=== PATIENT | male | born 1995 | race Caucasian/White ===

== ENCOUNTER 2019-09-09 09:27 | Emergency (ER) | payer OTHER, SELFPAY ==
[2019-09-09 09:33] VITALS: BP 140/77; PULSE 115; TEMP 37; O2SAT 98
--- NOTE | 2019-09-09 09:45 | DI.RAD_ITS ---
EXAM: XR PORTABLE CHEST AP CLINICAL HISTORY: syncope. TECHNIQUE: 2D digital imaging was performed. COMPARISON: No exams were available for comparison FINDINGS: LUNGS: Clear. No pleural abnormality seen. HEART: Normal. MEDIASTINUM: Normal. OTHER FINDINGS: None. IMPRESSION: No acute pulmonary findings. DATA REPOSITORY: RADIATION DOSE DELIVERED:
--- NOTE | 2019-09-09 09:47 | W.ED.GENAD ---
Discharge Plan Disposition Patient Disposition: HOME Condition: Improving Discharge Details Chief Complaint: Dizzy/Sync Clinical Impression: Urticaria Primary Care Provider: Janet,Local ED Provider: Chidi Winslow Home Meds and New Rx's Prescriptions: New prednisone 20 mg tablet 60 mg PO DAILY 5 Days Qty: 15 RF: 0 famotidine 20 mg tablet 20 mg PO DAILY Qty: 14 RF: 0 Continued epinephrine [EpiPen] 0.3 mg/0.3 mL Auto-Injector 0.3 mg IM Q5-15M PRNRF: 0 Zyrtec 10 mg Capsule 10 mg PO DAILY RF: 0 Discharge Instructions Instructions: Urticaria (ED) Additional Instructions: May continue Zyrtec once daily as you have been. Please take prednisone as prescribed. Famotidine daily for 2 weeks time. We will arrange an outpatient follow-up for you for recheck and to establish a local primary care. Return for difficulty swallowing, difficulty breathing, worsening rash, or any other acute concerns. You may also take Benadryl 25 mg at bedtime. Medical Decision Making 23-year-old male presents from home with day 2 of diffuse urticarial rash. He has not had difficulty swallowing, no change to voice, no change to breathing. He has a history of same in the past. He carries an EpiPen but has not deployed it. The rash is minimally improved with Zyrtec. He is well-appearing and stable on exam. Consistent with hives. He did report an episode of syncope. Therefore given liter of fluid, screening EKG obtained and patient referred for laboratory analysis. He is given parenteral steroid, antihistamines and observed. Screening chest x-ray without evidence of cardiomegaly and no other acute findings. Laboratories show likely stress demargination and elevated white blood cell count of 19, hematocrit 46, platelets 201. Patient dehydrated with urine ketones present, no evidence of infection. Chemistries and negative troponin. Sodium noted at 135, magnesium 1.6, total bili 1.3 with normal LFTs. TSH was normal. I will place him on a burst of steroids, we will arrange outpatient follow-up to establish primary care and for recheck. He will benefit from further antihistamines as well. Discussed with him home care and indications to seek reevaluation. Lab Data Lab results reviewed: Yes I reviewed the patient's lab results. Labs: Laboratory Results - last 24 hr 06/02/20 06/02/20 06/02/20 09:50 09:52 09:52 WBC 19.50 H RBC 5.12 Hgb 16.3 Hct 46.1 MCV 90.0 MCH 31.8 MCHC 35.4 RDW 12.5 Plt Count 201 MPV 11.6 H Immature Gran % 0.2 Neutrophils % 88.3 Lymphocytes % 7.8 Monocytes % 3.5 Eosinophils % 0.1 Basophils % 0.1 Absolute Neutrophils 17.22 H Absolute Lymphocytes 1.52 Absolute Monocytes 0.68 Absolute Eosinophils 0.02 Absolute Basophils 0.02 Sodium 135 L Potassium 3.8 Chloride 100 Carbon Dioxide 26.0 Anion Gap 9.0 BUN 14 Creatinine 1.04 Estimated GFR/1.73 m2 >= 60.00 Glucose 114 H Calcium 8.6 Magnesium 1.6 L Total Bilirubin 1.3 H AST 19 ALT 25 Alkaline Phosphatase 72 Troponin I < 0.05 Total Protein 7.8 Albumin 4.1 TSH 2.33 Urine Color Yellow Urine Clarity Clear Urine pH 6.5 Ur Specific [place] 1.015 Urine Protein Negative Urine Ketones 40 H Urine Blood Trace-intact H Urine Nitrite Negative Urine Bilirubin Negative Urine Urobilinogen 0.2 Ur Leukocyte Esterase Negative Urine RBC 5-10 H Urine WBC 5-10 Ur Epithelial Cells Negative Urine Crystals Negative Urine Bacteria Few Urine Casts Negative Urine Mucus Trace Ur Culture Indicated? Yes Urine Glucose Negative ECG Data Attestation: I personally reviewed and interpreted this ECG (s) as follows: Prior ECG tracings: not available for review Interpretation: Normal sinus rhythm, rate is 84, QRS is narrow, QTc is 440, no ST segment elevation HPI General Mode of arrival: ambulatory. Date/Time Provider Initiated Documentation: 09/09/19 09:33. Limitations to Documentation: no limitations. Information obtained by: patient. History of Present Illness 23 year old M presents to the emergency department with the chief complaint of Diffuse urticarial rash for 2 days, described as moderate, Quality is described as constant, and is localized to the chest, back, abdomen, upper extremity and lower extremity. Patient started experiencing this day(s) and it has been constant. No relieving factors improve symptom(s), No exacerbating factors reported . Patient notes syncope; denies chest pain, diaphoresis, fever/chills, headaches, malaise, nausea/vomiting, seizure and shortness of breath. Patient did receive the following treatments prior to arrival, other (zyrtec) Related Data Home Medications Medication Instructions Recorded Confirmed Zyrtec 10 mg PO DAILY 09/09/19 09/09/19 epinephrine [EpiPen] 0.3 mg IM Q5-15M PRN 09/09/19 09/09/19 famotidine 20 mg PO DAILY #14 tab 09/09/19 prednisone 60 mg PO DAILY 5 Days #15 tab 09/09/19 Previous Rx's Medication Instructions Recorded famotidine 20 mg PO DAILY #14 tab 09/09/19 prednisone 60 mg PO DAILY 5 Days #15 tab 09/09/19 Allergies Allergy/AdvReac Type Severity Reaction Status Date / Time bee pollen Allergy Unverified 09/09/19 09:40 pollen extracts AdvReac Unverified 09/09/19 09:40 General Stated Complaint: Dizzy/Sync SANDY: 3 Review of Systems Narrative: History of the same. Carries an EpiPen but has not used. No known sick contacts. No travel. Denies new soaps, lotions, perfumes, clothing or food exposures. 8 systems reviewed and otherwise negative. [facility] Social History Smoking/Tobacco Use Status: Current every day Tobacco Type: cigarettes Alcohol Intake: never Drug use: Occasionally Substance use type: marijuana Do you feel safe at home: Yes Do you feel safe in your relationship?: Yes Exam Narrative Exam Narrative: GEN: awake, alert, oriented 3. Pleasant, well groomed, interactive. HEAD: Normocephalic, atraumatic ENT: Mucous membranes moist, oropharynx unremarkable without asymmetry or swelling present, External ear exam unremarkable EYES: PERRL, EOMI NECK: Full ROM, no HENRIQUE, no menigismus CHEST/RESP: Nontender, clear to auscultation bilateral, no wheeze/rhonchi/rales CARDIOVASCULAR: Regular, pulse approximately 80, no murmur, rub bryson. 2+ Rad pulse bilateral ABDOMEN: Soft, nontender, no mass. +Bowel sounds EXT: Full ROM, no edema, diffuse urticarial blanching rash with out vesicles present on chest, back, extremities Neuro: Grossly normal neurologic exam, conversant, interactive. Psych: Speech fluent, thoughts congruent, affect normal Course Vital Signs Vital signs: Vital Signs Temperature 37.0 C 09/09/19 09:33 Pulse 115 H 09/09/19 09:33 Blood Pressure 140/77 09/09/19 09:33 Pulse Oximetry 98 09/09/19 09:33 Temperature 37.0 C 09/09/19 09:33 Temperature Source Temporal Artery Scan 09/09/19 09:33 Pulse 115 H 09/09/19 09:33 Respiratory Effort Non-Labored 09/09/19 09:38 Blood Pressure 140/77 09/09/19 09:33 Blood Pressure Position Sitting 09/09/19 09:33 Pulse Oximetry 98 09/09/19 09:33 Oxygen Delivery Method Room Air 09/09/19 09:33 Oxygen Flow Rate 0 09/09/19 09:33 Pain Level 0 09/09/19 09:33
[2019-09-09] MEDS: Normal Saline 1,000 ML 1000 ML IV (09:53)
[2019-09-09] MEDS: Normal Saline Flush 10 ML SYR IVP ×2 (09:53→10:02)
[2019-09-09 09:57] LABS: Bilirubin Negative (Negative); Blood Trace-intact (Negative); Clarity Clear (Clear); Glucose Negative (Negative); Ketones 40 mg/dL (Negative); Leukocyte Esterase Negative (Negative); Nitrite Negative (Negative); Specific Gravity 1.015 (1.005-1.025); Urobilinogen 0.2 EU/dL (Up TO 0.2); pH 6.5 (5-8)
[2019-09-09] MEDS: diphenhydrAMINE 50 MG/ML VIAL 25 MG IVP (09:59)
[2019-09-09] MEDS: methylPREDNISolone SUCC 125 MG VIAL IVP (10:01)
[2019-09-09] MEDS: FAMOTIDINE 20 MG/50 ML BAG 200 MG IVPB (10:01)
[2019-09-09 10:04] LABS: Abs Immature Grans 0.03 k/cumm (0.0-0.09); Absolute Basophil Count 0.02 k/cumm (0.0-0.2); Absolute Eosinophil Count 0.02 k/cumm (0.0-0.7); Absolute Lymphocyte Count 1.52 k/cumm (1.2-3.4); Absolute Monocyte Count 0.68 k/cumm (0.11-0.7); Absolute Neutrophil Count 17.22 k/cumm (1.2-6.7); Basophils % 0.1; Eosinophils % 0.1; HCT 46.1 % (40.0-50.0); HGB 16.3 g/dL (13.5-17.5); Immature Grans % 0.2 %; Lymphocytes % 7.8; Mean Corp. HGB Concentration 35.4 g/dL (32.0-36.0); Mean Corpuscular Hemoglobin 31.8 pg (27.0-33.0); Mean Platelet Volume 11.6 fL (8.0-11.0); Monocytes % 3.5; Neutrophils % 88.3; Platelet Count 201 x1000/uL (130-400); RBC 5.12 m/cumm (4.50-6.00); RBC Distribution Width 12.5 % (11.8-14.1)
[2019-09-09 10:15] VITALS: BP 119/87; PULSE 83; RESP 14; O2SAT 100
[2019-09-09 10:16] LABS: Bacteria Few HPF (Negative); C & S Indicated? Yes; Casts Negative LPF (Negative); Crystals Negative HPF (Negative); Epithelial Cells Negative HPF (Negative); Mucus Trace (Negative)
[2019-09-09 10:35] VITALS: BP 119/67; PULSE 83; O2SAT 99
[2019-09-09 10:35] LABS: ALT 25 U/L (16-63); AST 19 U/L (15-37); Albumin 4.1 g/dL (3.4-5.0); Alkaline Phosphatase 72 U/L (46-116); BUN 14 mg/dL (7-18); Bilirubin, Total 1.3 mg/dL (0.2-1.0); CREATININE 1.04 mg/dL (0.70-1.30); Calcium 8.6 mg/dL (8.5-10.1); Chloride 100 mmol/L (98-107); Glucose 114 mg/dL (74-106); Magnesium 1.6 mg/dL (1.8-2.4); Potassium 3.8 mmol/L (3.5-5.1); Sodium 135 mmol/L (136-145); TSH 2.33 uIU/mL (0.36-3.74); Total Protein 7.8 g/dL (6.4-8.2); Troponin I < 0.05 ng/mL (<0.06)
--- NOTE | 2019-09-09 10:44 | NUR.NOTE ---
Nursing Note: Copied and handed to care management
[2019-09-09 10:53] VITALS: TEMP 36.8
--- NOTE | 2019-09-09 11:25 | PDOC.ERCMPRO ---
- If Service Date Differs Date of service: 09/09/19 Time of Service: 11:26 Care Management Progress Note At the request of ED provider, CM coordinates a referral to Kelle Mcginnis (teledoc) of [facility] to assist patient in establishing care with a PCP.
== END 2019-09-09 10:55 | disposition home or self-care (01) ==
PROVIDERS: Emergency Provider Emergency Medicine
DX: L50.8 Other urticaria (principal); R55 Syncope and collapse; E86.0 Dehydration
CPT/HCPCS: 36415; 80053; 93005; 96361; 96365; 96375; 99285; 71045; 81003; 81015; 83735; 84443; 84484; 85025; 87086; 93010; 99284; J1200; J2930